=== PATIENT | male | born 1935 | race Caucasian/White ===

== ENCOUNTER 2017-09-24 14:14 | Inpatient (IN) | payer MEDICARE, OTHER ==
[2017-09-24] VITALS (12 sets, daily range): BP systolic 78–125; BP diastolic 48–63
[~2017-09-24] VITALS: Ht 182.9 cm; Wt 96.5 kg
[2017-09-24 14:42] LABS: INR 1.2 INR; PARTIAL THROMBOPLASTIN TIME 29 SECONDS (22-32); PROTHROMBIN TIME 12.2 SECONDS (9.0-12.0)
[2017-09-24 14:56] LABS: ALANINE AMINOTRANSFERASE 38 U/L (12-78); ALBUMIN 3.2 G/DL (3.4-5.0); ALBUMIN/GLOBULIN RATIO 0.8 (1.1-1.5); ALKALINE PHOSPHATASE 124 IU/L (46-116); ANION GAP 13 (8-16); ASPARTATE AMINO TRANSFERASE 76 U/L (10-37); BILIRUBIN,TOTAL 0.5 MG/DL (0.1-1.0); BLOOD UREA NITROGEN 28 MG/DL (7-18); BUN/CREATININE RATIO 17.5 (5.4-32.0); CALCIUM 7.6 MG/DL (8.5-10.1); CHLORIDE 110 MMOL/L (99-107); GLUCOSE 228 MG/DL (70-104); PHOSPHORUS 5.4 MG/DL (2.3-4.5); POTASSIUM 4.1 MMOL/L (3.5-5.1); SODIUM 146 MMOL/L (135-145); TOTAL CARBON DIOXIDE 22.6 MMOL/L (24-32); eGFR 42 ML/MIN
[2017-09-24 15:02] LABS: LYMPHOCYTES # (AUTO) 1.7 X10'3 (1.1-4.8); RED CELL DISTRIBUTION WIDTH 19.3 % (11.5-14.5)
[2017-09-24 15:05] LABS: BASOPHILS # (AUTO) 0.1 X10'3 (0-0.2); BASOPHILS % (AUTO) 0.2 % (0-1); EOSINOPHILS % (AUTO) 0.1 % (0-6); HEMATOCRIT 36.5 % (42.0-52.0); HEMOGLOBIN 11.8 g/dl (14.0-17.9); LYMPHOCYTES % (AUTO) 4.9 % (21-51); MEAN CORPUSCULAR HEMOGLOBIN 26.4 PG (27.0-31.0); MEAN CORPUSCULAR HGB CONC 32.2 % (33.0-36.5); MEAN PLATELET VOLUME 8.7 FL (7.4-10.4); MONOCYTES # (AUTO) 2.7 X10'3 (0-0.9); MONOCYTES % (AUTO) 7.6 % (2-12); NEUTROPHILS # (AUTO) 30.8 X10'3 (1.8-7.7); NEUTROPHILS % (AUTO) 87.2 % (42-75); PLATELET COUNT 299 X10'3 (140-440); RED BLOOD COUNT 4.46 X10'6 (4.70-6.10)
[2017-09-24 15:12] LABS: WHITE BLOOD COUNT 35.3 X10'3 (4.5-11.0)
[2017-09-24] MEDS ORDERED: FENTANYL-0.9 % NACL/PF 100 ML IV PRN (15:17)
[2017-09-24] MEDS ORDERED: CISatracurium besylate inj. 200 MG in normal saline 250ml IV soln 180 ML IV PRN (15:17)
[2017-09-24] MEDS ORDERED: acetaminophen 325mg tablet PO PRN ×2 (15:20)
[2017-09-24] MEDS ORDERED: ipratropium/albuterol 3ml nebule NEB PRN (15:20)
[2017-09-24] MEDS ORDERED: midazolam 2 mg/2 ml injection IV ONE (15:20)
[2017-09-24] MEDS ORDERED: potassium Cl 40MEQ/NS 500ml 500 ML IV PRN ×2 (15:20)
[2017-09-24] MEDS ORDERED: potassium Cl 20 mEq SR tablet PO PRN ×2 (15:20)
[2017-09-24] MEDS ORDERED: ondansetron/PF 4mg/2ml inj IV PRN (15:20)
[2017-09-24] MEDS ORDERED: CISatracurium **Bolus** 2 mg/ml inj IV PRN (15:20)
[2017-09-24] MEDS ORDERED: fentaNYL/PF 50MCG/1 ML 2ML syringe IV PRN (15:20)
[2017-09-24] MEDS ORDERED: MIDAZolam 5mg/ml 2ml vial IV ONE (15:20)
[2017-09-24] MEDS ORDERED: potassium Cl 40MEQ/250ML bag 250 ML IV PRN (15:20)
[2017-09-24 15:31] LABS: ABG BASE EXCESS -12.4 mmol/L (-2.0-3.0); ABG HCO3 16.7 mmol/L (22.0-26.0); ABG OXYGEN SATURATION 78.8 % (95-98); ABG PCO2 (T) 48.9 mmHg (35.0-48.0); ABG PH (T) 7.144 (7.350-7.450); ABG PO2 (T) 50.9 mmHg (83-108); FCOHb 0.7 % (0.5-1.5); FMetHb 0.3 % (0.3-1.12); PEEP 7 cm H2O; RESPIRATORY RATE 20 b/min; RESPIRATORY RATE (OBSERVED) 20 b/min; TIDAL VOLUME 575 mL; TOTAL HEMOGLOBIN 12.5 G/dl (14.0-18.0)
[2017-09-24 15:40] LABS: ANISOCYTOSIS 2+; PLATELET ESTIMATE NORMAL; TOTAL CELLS COUNTED 100
[2017-09-24 15:41] LABS: BURR CELLS 1+; ELLIPTOCYTES 1+; SCHISTOCYTES FEW
[2017-09-24] MEDS: midazolam 100mg in NS 100ml 100 ML IV PRN (16:49)
[2017-09-24] MEDS: amiodarone/D5 360MG/200ML BAG 200 ML IV SCH (16:49)
[2017-09-24] MEDS: FENTANYL-0.9 % NACL/PF 100 ML IV PRN (16:50)
[2017-09-24] MEDS: DOPamine 400mg/D5W 250ml 250 ML IV SCH ×2 (16:51→23:00)
[2017-09-24] MEDS ORDERED: dextrose 50%-water 50ml dispensing syringe IV PRN (17:25)
[2017-09-24 18:21] LABS: CKMB RELATIVE INDEX 9.1 RATIO (0-2.5)
[2017-09-24] MEDS: ipratropium/albuterol 3ml nebule NEB SCH ×2 (18:53→22:46)
[2017-09-24 19:26] LABS: OXYGEN SATURATION (MIXED VEN) 70.5 % (60-80); PO2 MIXED VENOUS (TEMP COR) 37.7 mmHg (35-46)
[2017-09-24 19:31] LABS: ABG BASE EXCESS -14.3 mmol/L (-2.0-3.0); ABG HCO3 16.4 mmol/L (22.0-26.0); ABG OXYGEN SATURATION 87.7 % (95-98); ABG PCO2 (T) 50.3 mmHg (35.0-48.0); ABG PH (T) 7.103 (7.350-7.450); ABG PO2 (T) 54.5 mmHg (83-108); FCOHb 0.8 % (0.5-1.5); MINUTE VOLUME 8 L/min; PATIENT TEMPERATURE 32.9; PEEP 5 cm H2O; RESPIRATORY RATE 20 b/min; RESPIRATORY RATE (OBSERVED) 20 b/min; TIDAL VOLUME 400 mL; TOTAL HEMOGLOBIN 12.5 G/dl (14.0-18.0)
[2017-09-24] MEDS: insulin regular, human 100 UNITS in normal saline 100ml IV soln 99 ML IV SCH ×4 (20:22→23:14)
[2017-09-24] MEDS: normal saline 1000ml 1,000 ML IV SCH (20:29)
[2017-09-24] MEDS: famotidine/PF 10 mg/ml inj IV SCH (21:43)
[2017-09-24] MEDS: docusate sod 100mg capsule PO SCH (21:46)
[2017-09-24] MEDS: heparin, porcine 5000 units/ml vial SQ SCH (21:46)
[2017-09-24 22:06] LABS: ABG BASE EXCESS -15.1 mmol/L (-2.0-3.0); ABG HCO3 16.3 mmol/L (22.0-26.0); ABG OXYGEN SATURATION 91.9 % (95-98); ABG PCO2 (T) 48.6 mmHg (35.0-48.0); ABG PH (T) 7.099 (7.350-7.450); ABG PO2 (T) 54.7 mmHg (83-108); FCOHb 0.5 % (0.5-1.5); FMetHb 0.3 % (0.3-1.12); FO2Hb 91.2 % (94-100); MINUTE VOLUME 9 L/min; PATIENT TEMPERATURE 30.4; PEEP 5 cm H2O; RESPIRATORY RATE 20 b/min; RESPIRATORY RATE (OBSERVED) 20 b/min; TIDAL VOLUME 400 mL; TOTAL HEMOGLOBIN 12.7 G/dl (14.0-18.0)
[2017-09-24 22:06] LABS: ALBUMIN 2.9 G/DL (3.4-5.0); ANION GAP 16 (8-16); BLOOD UREA NITROGEN 35 MG/DL (7-18); BUN/CREATININE RATIO 17.5 (5.4-32.0); CALCIUM 7.3 MG/DL (8.5-10.1); CHLORIDE 110 MMOL/L (99-107); GLUCOSE 252 MG/DL (70-104); MAGNESIUM 1.9 MG/DL (1.5-2.4); POTASSIUM 3.1 MMOL/L (3.5-5.1); SODIUM 144 MMOL/L (135-145); TOTAL CARBON DIOXIDE 17.9 MMOL/L (24-32); eGFR 32 ML/MIN
[2017-09-24] MEDS ORDERED: potassium Cl 40MEQ/250ML bag 250 ML IV ONE (22:52)
[2017-09-24] MEDS ORDERED: normal saline 500ml IV soln 500 ML IV ONE (22:55)
[2017-09-24] MEDS: potassium Cl 40MEQ/250ML bag 250 ML IV SCH (23:01)
[2017-09-25] VITALS (24 sets, daily range): BP systolic 97–134; BP diastolic 37–61
[2017-09-25 02:14] LABS: CLARITY,URINE SLIGHTLY CLOUDY (Clear); GLUCOSE, URINE NEGATIVE (Neg); KETONES,URINE TRACE mg/dl (Neg); LEUKOCYTE ESTERASE ,URINE NEGATIVE (Neg); NITRITES, URINE POSITIVE (Neg); OCCULT BLOOD,URINE LARGE (Neg); PROTEIN,URINE 100 mg/dl (Neg)
[2017-09-25 02:21] LABS: COLOR,URINE DARK YELLOW (Yellow); UA COLLECTION TYPE FOLEY CATH
[2017-09-25] MEDS: ipratropium/albuterol 3ml nebule NEB SCH ×6 (02:23→23:06)
[2017-09-25 02:25] LABS: BACTERIA,URINE 1+ /HPF (Neg); RBC,URINE TNTC /HPF (0-2); SQUAMOUS EPITHELIAL CELL,UR FEW /LPF (FEW)
[2017-09-25 02:26] LABS: AMORPHOUS URATES 2+; WBC CLUMPS,URINE FEW /HPF (NEGATIVE)
[2017-09-25 02:56] LABS: OXYGEN SATURATION (MIXED VEN) 81.1 % (60-80); PO2 MIXED VENOUS (TEMP COR) 38.5 mmHg (35-46)
[2017-09-25 03:01] LABS: ABG BASE EXCESS -17.4 mmol/L (-2.0-3.0); ABG HCO3 14.1 mmol/L (22.0-26.0); ABG OXYGEN SATURATION 95.9 % (95-98); ABG PCO2 (T) 45.3 mmHg (35.0-48.0); ABG PH (T) 7.066 (7.350-7.450); FCOHb 0.5 % (0.5-1.5); FMetHb 0.3 % (0.3-1.12); FO2Hb 95.1 % (94-100); MINUTE VOLUME 9 L/min; PATIENT TEMPERATURE 30.6; PEEP 5 cm H2O; RESPIRATORY RATE 20 b/min; RESPIRATORY RATE (OBSERVED) 20 b/min; TIDAL VOLUME 400 mL; TOTAL HEMOGLOBIN 12.2 G/dl (14.0-18.0)
[2017-09-25 03:19] LABS: BASOPHILS % (AUTO) 0 % (0-1); EOSINOPHILS % (AUTO) 0 % (0-6); HEMATOCRIT 37.8 % (42.0-52.0); HEMOGLOBIN 11.8 g/dl (14.0-17.9); LYMPHOCYTES # (AUTO) 0.9 X10'3 (1.1-4.8); LYMPHOCYTES % (AUTO) 4.5 % (21-51); MEAN CORPUSCULAR HEMOGLOBIN 25.8 PG (27.0-31.0); MEAN CORPUSCULAR HGB CONC 31.1 % (33.0-36.5); MEAN CORPUSCULAR VOLUME 82.9 FL (78-98); MEAN PLATELET VOLUME 8.7 FL (7.4-10.4); MONOCYTES # (AUTO) 0.7 X10'3 (0-0.9); MONOCYTES % (AUTO) 3.7 % (2-12); NEUTROPHILS # (AUTO) 18.4 X10'3 (1.8-7.7); NEUTROPHILS % (AUTO) 91.8 % (42-75); PLATELET COUNT 227 X10'3 (140-440); RED BLOOD COUNT 4.56 X10'6 (4.70-6.10); RED CELL DISTRIBUTION WIDTH 20.5 % (11.5-14.5)
[2017-09-25 03:35] LABS: ALANINE AMINOTRANSFERASE 46 U/L (12-78); ALBUMIN 2.7 G/DL (3.4-5.0); ALBUMIN/GLOBULIN RATIO 0.8 (1.1-1.5); ALKALINE PHOSPHATASE 91 IU/L (46-116); ANION GAP 15 (8-16); ASPARTATE AMINO TRANSFERASE 82 U/L (10-37); BILIRUBIN,TOTAL 0.5 MG/DL (0.1-1.0); BLOOD UREA NITROGEN 38 MG/DL (7-18); CHLORIDE 112 MMOL/L (99-107); GLUCOSE 243 MG/DL (70-104); MAGNESIUM 1.7 MG/DL (1.5-2.4); PHOSPHORUS 3.8 MG/DL (2.3-4.5); POTASSIUM 3.3 MMOL/L (3.5-5.1); SODIUM 144 MMOL/L (135-145); TOTAL CARBON DIOXIDE 17.2 MMOL/L (24-32); TOTAL PROTEIN 6.2 G/DL (6.4-8.2); eGFR 32 ML/MIN
[2017-09-25] MEDS ORDERED: potassium Cl 40MEQ/250ML bag 250 ML IV ONE (04:24)
[2017-09-25 04:29] LABS: HEMOGLOBIN A1C 6.6 % (4.5-6.2)
[2017-09-25] MEDS: potassium Cl 40MEQ/250ML bag 250 ML IV SCH (04:34)
[2017-09-25] MEDS: amiodarone/D5 360MG/200ML BAG 200 ML IV SCH ×2 (04:34→16:34)
[2017-09-25] MEDS: DOPamine 400mg/D5W 250ml 250 ML IV SCH ×5 (04:34→19:36)
[2017-09-25] MEDS: normal saline 1000ml 1,000 ML IV SCH ×2 (04:37→12:34)
[2017-09-25] MEDS ORDERED: sodium bicarbonate (8.4%) 1 mEq/ml syringe IV ONE (04:55)
[2017-09-25] MEDS: insulin regular, human 100 UNITS in normal saline 100ml IV soln 99 ML IV SCH ×12 (06:13→10:38)
[2017-09-25] MEDS: famotidine/PF 10 mg/ml inj IV SCH ×2 (07:51→19:56)
[2017-09-25] MEDS: heparin, porcine 5000 units/ml vial SQ SCH ×2 (07:51→19:56)
[2017-09-25] MEDS: docusate sod 100mg capsule PO SCH ×2 (07:52→20:00)
[2017-09-25 08:05] LABS: ALBUMIN 2.6 G/DL (3.4-5.0); ANION GAP 12 (8-16); BLOOD UREA NITROGEN 41 MG/DL (7-18); BUN/CREATININE RATIO 22.8 (5.4-32.0); CHLORIDE 113 MMOL/L (99-107); GLUCOSE 220 MG/DL (70-104); MAGNESIUM 1.7 MG/DL (1.5-2.4); POTASSIUM 4.2 MMOL/L (3.5-5.1); SODIUM 145 MMOL/L (135-145); TOTAL CARBON DIOXIDE 19.8 MMOL/L (24-32); eGFR 36 ML/MIN
[2017-09-25 08:11] LABS: CREATINE KINASE 1075 U/L (39-308)
[2017-09-25 08:13] LABS: CKMB RELATIVE INDEX 9.6 RATIO (0-2.5); TROPONIN I 4.19 NG/ML (0.0-0.05)
[2017-09-25 08:51] LABS: ABG BASE EXCESS -15.5 mmol/L (-2.0-3.0); ABG HCO3 16.5 mmol/L (22.0-26.0); ABG OXYGEN SATURATION 96.4 % (95-98); ABG PH (T) 7.041 (7.350-7.450); ABG PO2 (T) 82.6 mmHg (83-108); FCOHb 0.6 % (0.5-1.5); FMetHb 0.3 % (0.3-1.12); FO2Hb 95.5 % (94-100); MINUTE VOLUME 8 L/min; PATIENT TEMPERATURE 32.5; PEEP 5 cm H2O; RESPIRATORY RATE 20 b/min; RESPIRATORY RATE (OBSERVED) 20 b/min; TIDAL VOLUME 400 mL; TOTAL HEMOGLOBIN 12.3 G/dl (14.0-18.0)
[2017-09-25 08:51] LABS: OXYGEN SATURATION (MIXED VEN) 87.6 % (60-80); PO2 MIXED VENOUS (TEMP COR) 46.5 mmHg (35-46)
[2017-09-25] MEDS: midazolam 100mg in NS 100ml 100 ML IV PRN (12:34)
[2017-09-25 13:38] LABS: ALBUMIN 2.5 G/DL (3.4-5.0); ANION GAP 13 (8-16); BLOOD UREA NITROGEN 42 MG/DL (7-18); BUN/CREATININE RATIO 20.8 (5.4-32.0); CHLORIDE 113 MMOL/L (99-107); CREATININE 2.02 MG/DL (0.60-1.10); GLUCOSE 164 MG/DL (70-104); MAGNESIUM 1.7 MG/DL (1.5-2.4); POTASSIUM 3.5 MMOL/L (3.5-5.1); SODIUM 145 MMOL/L (135-145); TOTAL CARBON DIOXIDE 19.2 MMOL/L (24-32); eGFR 32 ML/MIN
[2017-09-25] MEDS ORDERED: UNABLE TO OBTAIN (14:11)
[2017-09-25] MEDS: piperacillin-tazo 2.25gm/50ml 50 ML IV SCH ×2 (14:33→19:58)
[2017-09-25 14:51] LABS: ABG BASE EXCESS -15.4 mmol/L (-2.0-3.0); ABG HCO3 16.2 mmol/L (22.0-26.0); ABG OXYGEN SATURATION 96.5 % (95-98); ABG PCO2 (T) 55.3 mmHg (35.0-48.0); ABG PH (T) 7.055 (7.350-7.450); FCOHb 0.7 % (0.5-1.5); FMetHb 0.3 % (0.3-1.12); FO2Hb 95.5 % (94-100); MINUTE VOLUME 10 L/min; PATIENT TEMPERATURE 32.7; PEEP 5 cm H2O; RESPIRATORY RATE 24 b/min; RESPIRATORY RATE (OBSERVED) 24 b/min; TIDAL VOLUME 400 mL; TOTAL HEMOGLOBIN 12.2 G/dl (14.0-18.0)
[2017-09-25 15:00] LABS: OXYGEN SATURATION (MIXED VEN) 90.3 % (60-80); PO2 MIXED VENOUS (TEMP COR) 52.3 mmHg (35-46)
[2017-09-25] MEDS ORDERED: DOPamine 400mg/D5W 250ml 250 ML IV ONE (19:35)
[2017-09-25 19:56] LABS: ABG BASE EXCESS -17.3 mmol/L (-2.0-3.0); ABG OXYGEN SATURATION 93.3 % (95-98); ABG PCO2 (T) 67.6 mmHg (35.0-48.0); ABG PH (T) 6.964 (7.350-7.450); FCOHb 0.7 % (0.5-1.5); FMetHb 0.3 % (0.3-1.12); FO2Hb 92.4 % (94-100); MINUTE VOLUME 10 L/min; PATIENT TEMPERATURE 33.1; PEEP 5 cm H2O; RESPIRATORY RATE 24 b/min; RESPIRATORY RATE (OBSERVED) 24 b/min; TIDAL VOLUME 400 mL; TOTAL HEMOGLOBIN 12.1 G/dl (14.0-18.0)
[2017-09-25 19:56] LABS: OXYGEN SATURATION (MIXED VEN) 77.1 % (60-80); PO2 MIXED VENOUS (TEMP COR) 35.9 mmHg (35-46)
[2017-09-25] MEDS: mineral oil/petrolatum ophthal oint EACHEYE SCH (19:58)
[2017-09-25 20:05] LABS: ALBUMIN 2.4 G/DL (3.4-5.0); ANION GAP 15 (8-16); BLOOD UREA NITROGEN 45 MG/DL (7-18); BUN/CREATININE RATIO 19.7 (5.4-32.0); CALCIUM 6.8 MG/DL (8.5-10.1); CHLORIDE 111 MMOL/L (99-107); CKMB RELATIVE INDEX 13.1 RATIO (0-2.5); CREATINE KINASE 863 U/L (39-308); CREATININE 2.28 MG/DL (0.60-1.10); GLUCOSE 137 MG/DL (70-104); MAGNESIUM 1.6 MG/DL (1.5-2.4); POTASSIUM 4.1 MMOL/L (3.5-5.1); SODIUM 143 MMOL/L (135-145); TOTAL CARBON DIOXIDE 17.3 MMOL/L (24-32); eGFR 28 ML/MIN
[2017-09-25 20:10] LABS: TROPONIN I 3.01 NG/ML (0.0-0.05)
[2017-09-25] MEDS: NORepinephrine 8mg/ 250ml NS 250 ML IV PRN (20:53)
[2017-09-26] VITALS (14 sets, daily range): BP systolic 102–143; BP diastolic 36–48
[2017-09-26] MEDS: FENTANYL-0.9 % NACL/PF 100 ML IV PRN (01:00)
[2017-09-26] MEDS: mineral oil/petrolatum ophthal oint EACHEYE SCH ×2 (01:48→07:16)
[2017-09-26] MEDS: piperacillin-tazo 2.25gm/50ml 50 ML IV SCH ×2 (01:48→07:16)
[2017-09-26] MEDS: normal saline 1000ml 1,000 ML IV SCH (01:50)
[2017-09-26] MEDS: midazolam 100mg in NS 100ml 100 ML IV PRN (02:21)
[2017-09-26 02:50] LABS: ALANINE AMINOTRANSFERASE 40 U/L (12-78); ALBUMIN 2.3 G/DL (3.4-5.0); ALBUMIN/GLOBULIN RATIO 0.7 (1.1-1.5); ALKALINE PHOSPHATASE 65 IU/L (46-116); ANION GAP 15 (8-16); ASPARTATE AMINO TRANSFERASE 86 U/L (10-37); BILIRUBIN,TOTAL 0.6 MG/DL (0.1-1.0); BLOOD UREA NITROGEN 48 MG/DL (7-18); BUN/CREATININE RATIO 18.7 (5.4-32.0); CALCIUM 6.7 MG/DL (8.5-10.1); CHLORIDE 110 MMOL/L (99-107); CREATININE 2.57 MG/DL (0.60-1.10); GLUCOSE 119 MG/DL (70-104); MAGNESIUM 1.4 MG/DL (1.5-2.4); PHOSPHORUS 5.6 MG/DL (2.3-4.5); POTASSIUM 5.6 MMOL/L (3.5-5.1); SODIUM 142 MMOL/L (135-145); TOTAL CARBON DIOXIDE 17.4 MMOL/L (24-32); TOTAL PROTEIN 5.6 G/DL (6.4-8.2); eGFR 24 ML/MIN
[2017-09-26 03:08] LABS: BASOPHILS % (AUTO) 0 % (0-1); EOSINOPHILS % (AUTO) 0 % (0-6); HEMATOCRIT 34.1 % (42.0-52.0); HEMOGLOBIN 10.8 g/dl (14.0-17.9); LYMPHOCYTES # (AUTO) 0.6 X10'3 (1.1-4.8); LYMPHOCYTES % (AUTO) 4.4 % (21-51); MEAN CORPUSCULAR HGB CONC 31.8 % (33.0-36.5); MEAN CORPUSCULAR VOLUME 81.8 FL (78-98); MEAN PLATELET VOLUME 9.3 FL (7.4-10.4); MONOCYTES # (AUTO) 1.2 X10'3 (0-0.9); MONOCYTES % (AUTO) 9.2 % (2-12); NEUTROPHILS # (AUTO) 11.2 X10'3 (1.8-7.7); NEUTROPHILS % (AUTO) 86.4 % (42-75); PLATELET COUNT 212 X10'3 (140-440); RED BLOOD COUNT 4.17 X10'6 (4.70-6.10); RED CELL DISTRIBUTION WIDTH 18.9 % (11.5-14.5)
[2017-09-26] MEDS: ipratropium/albuterol 3ml nebule NEB SCH ×2 (03:14→07:24)
[2017-09-26 03:31] LABS: ABG HCO3 12.4 mmol/L (22.0-26.0); ABG OXYGEN SATURATION 94.4 % (95-98); ABG PCO2 (T) 51.2 mmHg (35.0-48.0); ABG PH (T) 6.991 (7.350-7.450); ABG PO2 (T) 83.5 mmHg (83-108); FCOHb 0.8 % (0.5-1.5); FMetHb 0.3 % (0.3-1.12); FO2Hb 93.4 % (94-100); MINUTE VOLUME 15 L/min; PATIENT TEMPERATURE 35.4; PEEP 5 cm H2O; RESPIRATORY RATE 24 b/min; RESPIRATORY RATE (OBSERVED) 27 b/min; TIDAL VOLUME 500 mL; TOTAL HEMOGLOBIN 11.2 G/dl (14.0-18.0)
[2017-09-26] MEDS: DOPamine 400mg/D5W 250ml 250 ML IV SCH (03:37)
[2017-09-26] MEDS ORDERED: sodium bicarbonate (8.4%) inj. 100 MEQ in sodium chloride 0.45% 1,000 ML IV SCH (03:40)
[2017-09-26] MEDS: amiodarone/D5 360MG/200ML BAG 200 ML IV SCH (03:42)
[2017-09-26] MEDS ORDERED: sodium bicarbonate (8.4%) 1 mEq/ml syringe ONE (03:44)
[2017-09-26] MEDS: NORepinephrine 8mg/ 250ml NS 250 ML IV PRN (05:32)
[2017-09-26] MEDS: heparin, porcine 5000 units/ml vial SQ SCH (07:16)
[2017-09-26] MEDS: docusate sod 100mg capsule PO SCH (07:16)
[2017-09-26] MEDS: famotidine/PF 10 mg/ml inj IV SCH (07:16)
[2017-09-26 08:40] LABS: ABG BASE EXCESS -18.5 mmol/L (-2.0-3.0); ABG HCO3 13.8 mmol/L (22.0-26.0); ABG OXYGEN SATURATION 96.3 % (95-98); ABG PCO2 (T) 66.1 mmHg (35.0-48.0); ABG PH (T) 6.936 (7.350-7.450); ABG PO2 (T) 106.1 mmHg (83-108); FMetHb 0.3 % (0.3-1.12); PATIENT TEMPERATURE 36.6; TOTAL HEMOGLOBIN 10.9 G/dl (14.0-18.0)
[2017-09-26] MEDS ORDERED: epiNEPHrine inj 5 MG, calcium chloride inj. 1,000 MG in normal saline 250ml IV soln 235 ML IV PRN (09:20)
[2017-09-26] MEDS ORDERED: normal saline 1000ml 1,000 ML IVB ONE ×2 (09:20→09:50)
[2017-09-26] MEDS ORDERED: naloxone 0.4 mg/ml inj IV PRN (11:05)
[2017-09-26] MEDS ORDERED: CADD PCA waste documentation MC PRN (11:05)
[2017-09-26] MEDS ORDERED: DOPamine 400mg/D5W 250ml 250 ML IV SCH (14:25)
== END 2017-09-26 13:44 | disposition expired | DRG 208 ==
LOC: ER 14:15 → ED HOLD 15:17 → ICU 2S 16:26
PROVIDERS: ADMIT Internal Medicine Critical Care Medicine; ATTEND Internal Medicine Critical Care Medicine
PROC: 5A1945Z Respiratory Ventilation, 24-96 Consecutive Hours (ICD-10-PCS; principal; 2017-09-24)
PROC: 04HK33Z Insertion of Infusion Device into Right Femoral Artery, Percutaneous Approach (ICD-10-PCS; 2017-09-24)
PROC: 02HV33Z Insertion of Infusion Device into Superior Vena Cava, Percutaneous Approach (ICD-10-PCS; 2017-09-25)
PROC: B548ZZA Ultrasonography of Superior Vena Cava, Guidance (ICD-10-PCS; 2017-09-25)
PROC: 5A12012 Performance of Cardiac Output, Single, Manual (ICD-10-PCS; 2017-09-26)
DX: J96.00 Acute respiratory failure, unspecified whether with hypoxia or hypercapnia (principal); I46.9 Cardiac arrest, cause unspecified; N17.9 Acute kidney failure, unspecified; G93.1 Anoxic brain damage, not elsewhere classified; F03.90 Unspecified dementia, unspecified severity, without behavioral disturbance, psychotic disturbance, mood disturbance, and anxiety; I73.9 Peripheral vascular disease, unspecified; I25.10 Atherosclerotic heart disease of native coronary artery without angina pectoris; I49.01 Ventricular fibrillation; Z51.5 Encounter for palliative care; Z87.891 Personal history of nicotine dependence; Z86.79 Personal history of other diseases of the circulatory system
CPT/HCPCS: 36415; 36600; 70450; 71045; 80048; 80053; 81001; 82550; 82553; 82803; 82810; 82948; 83036; 83605; 83735; 83880; 84100; 84484; 85018; 85025; 85610; 85730; 87040; 87070; 87088; 92950; 93005; 94002; 94003; 94640; 94760; 99291; A6213; A6257; A7015; C1758; J1265; J1644; J1815; J2250; J2543; J3480; J3490; J7030